=== PATIENT | female | born 1985 | race African-American/Black ===

== ENCOUNTER 2018-04-03 05:43 | Emergency (ER) | payer MEDICAID ==
[~2018-04-03] VITALS: Ht 165.1 cm; Wt 69.0 kg
[2018-04-03] MEDS ORDERED: ONDANSETRON 4MG ODT PO STA (06:19)
[2018-04-03 06:37] LABS: BASOPHILS % 0.5 % (0.0-2.0); EOSINOPHILS % 1.1 % (0.0-5.0); HEMATOCRIT. 43.8 % (36.0-48.0); HEMOGLOBIN. 15.2 g/dL (12.0-16.0); LYMPHOCYTES % 26.9 % (20.0-50.0); MEAN CORPUSCULAR HEMOGLOBIN 31.1 pg (28.0-32.0); MEAN CORPUSCULAR VOLUME 89.2 fL (81.0-99.0); MEAN PLATELET VOLUME 6.9 fl (7.4-10.4); MONOCYTES % 5.2 % (2.0-8.0); NEUTROPHILS % 66.3 % (40.0-76.0); PLATELET 391 x1000/uL (130-400); RED BLOOD CELL COUNT 4.91 mill/uL (4.2-5.4); RED CELL DISTRIBUTION WIDTH 15.3 % (11.6-14.6)
[2018-04-03 06:42] LABS: CHLORIDE 104 mEq/L (98-107)
[2018-04-03 06:49] LABS: HCG SCREEN NEGATIVE
[2018-04-03] MEDS ORDERED: METH10TA7 MT (07:05)
[2018-04-03] MEDS ORDERED: OMEP20TA2 MT (07:05)
[2018-04-03] MEDS ORDERED: FLEXERIL (07:05)
[2018-04-03] MEDS ORDERED: METO100T16 PO (07:05)
[2018-04-03] MEDS ORDERED: GABA-531 MT (07:05)
[2018-04-03 08:49] LABS: CLARITY URINE CLEAR (CLEAR); COLOR URINE YELLOW (YELLOW); KETONES URINE NEGATIVE (NEGATIVE); LEUKOCYTE ESTERASE URINE 2+ (NEGATIVE); NITRITE URINE NEGATIVE (NEGATIVE); OCCULT BLOOD URINE NEGATIVE (NEGATIVE); PH URINE 6.5 (4.5-8.0); PROTEIN URINE NEGATIVE (NEGATIVE); SPECIFIC GRAVITY URINE 1.011 (1.005-1.030)
[2018-04-03 09:58] VITALS: BP 140/90
== END 2018-04-03 10:03 | disposition home or self-care (01) ==
LOC: ER 05:43
DX: E05.90 Thyrotoxicosis, unspecified without thyrotoxic crisis or storm (principal); N30.00 Acute cystitis without hematuria; I10 Essential (primary) hypertension; F17.200 Nicotine dependence, unspecified, uncomplicated; Z88.0 Allergy status to penicillin
CPT/HCPCS: 36415; 80053; 81003; 81025; 84439; 84443; 84703; 85025; 99284; Q0162